=== PATIENT | male | born 1980 | race Two or more races ===

== ENCOUNTER 2017-11-18 11:49 | Emergency (ER) | payer OTHER ==
[2017-11-18 12:06] VITALS: BP 134/76; PULSE 84; TEMP 98.2; BMI 31.2
[2017-11-18] MEDS ORDERED: ASPIRIN 325 MG TABLET PO ONE (12:18)
--- NOTE | 2017-11-18 12:19 | PDOC ---
Attending Attestation - HPI HPI: 11/18/17 13:55 The patient is a 37 year old male, with no significant PMH who presents to the emergency department with intermittent left sided chest pain for one month. The patient reports the left sided chest pain is exacerbated when he moves his left arm and alleviated with Motrin. The patient reports he previously saw his PMD who performed a cardiac work up (without stress test) with normal results and determined the chest pain was musculature. The patient states he decided to come to the ED today because he is continuing to have the chest pain. 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 He denies any recent swelling or calf tenderness. He denies any recent surgeries. He denies any recent travel. He denies any family history of cardiac disease. The patient denies palpitations, shortness of breath, headache and dizziness. Denies fever, chills, nausea, vomit, diarrhea and constipation. Denies dysuria, frequency, urgency and hematuria. Allergies: NKA Documentation prepared by Mikey Hernandez, acting as biomedical engineering aide for Ming Medrano MD. - Physicial Exam PE: 11/18/17 14:09 Vitals: Triage vital signs reviewed General Appearance: No acute distress, well nourished, well developed Head: Atraumatic Eyes: Pupils equal reactive round, extraocular movement intact Ears: TM's normal bilaterally Nose: Nares patent bilaterally; no nasal congestion Throat: Posterior oropharynx without erythema, mucous membranes moist Neck: Supple; No nuchal rigidity Chest Wall: +Reproducible chest wall pain Cardiac: Regular rate and rhythm, no murmurs, no rubs, no gallops Lungs: Clear to auscultation bilateral, good air movement bilaterally Abdomen: Soft, nondistended, normal bowel sounds, nontender to palpation Genitourinary: Rectal: Exam deferred Extremities: Full range of motion to all extremities, no cyanosis, clubbing, or edema Skin: Warm and dry, no rashes or lesions, no rash, no petechiae Neuro: AOX3; Cranial Nerves 2-12 grossly intact, Strength intact to all extremities, Sensation intact to all extremities, gait normal Psych: Normal mood, normal affect - Medical Decision Making 11/18/17 13:57 The patient is a 37 year old male, with no significant PMH who presents to the emergency department with intermittent left sided chest pain for one month. Plan: Labs, EKG. <Mikey Hernandez - Last Filed: 11/18/17 14:09> - ED Attending Attestation I have performed the following: I have examined & evaluated the patient, The case was reviewed & discussed with the resident, I agree w/resident's findings & plan, Exceptions are as noted - Medical Decision Making Reproducible discomfort heart score 1 troponin negative history and examination most consistent with muscle skeletal chest wall pain Findings, the need for follow-up and strict return instructions discussed with patient. <Ming Medrano - Last Filed: 11/18/17 16:29>
[2017-11-18] MEDS ORDERED: ASPIRIN 325 MG TABLET ONE (12:39)
--- NOTE | 2017-11-18 13:28 | EKG ---
Test Reason : Blood Pressure : / mmHG Vent. Rate : 075 BPM Atrial Rate : 075 BPM P-R Int : 148 ms QRS Dur : 088 ms QT Int : 346 ms P-R-T Axes : 055 024 047 degrees QTc Int : 386 ms NORMAL SINUS RHYTHM NORMAL ECG NO PREVIOUS ECGS AVAILABLE Confirmed by GUSTAVO FLORES MD ([id number]) on 11/18/2017 1:28:31 PM Referred By: Confirmed By:GUSTAVO FLORES MD
--- NOTE | 2017-11-18 13:38 | PDOC ---
History of Present Illness - General Chief Complaint: Chest Pain Stated Complaint: LT SHOULDER PAIN Time Seen by Provider: 11/18/17 12:16 History Source: Patient Exam Limitations: No Limitations - History of Present Illness Initial Comments: 11/18/17 13:33 37M with no pmh presents to the ED for left sided chest, shoulder and bicep pain for the past month, temporarily relieved with motrin. He states that he saw his PCp who did a cardiac work up (no stress test) and dertermined that the pain was muscular in nature. Because the symptoms did not resolve the patient came to the ED for a second opinion. The patient works as a manager statistics and carries plates around which exacerbates the pain at the end of his shift. He denies shortness of breath, diaphoresis and palpitations. Pain is reproducible on palpation. Past History - Past Medical History Allergies/Adverse Reactions: Allergies Allergy/AdvReac Type Severity Reaction Status Date / Time No Known Allergies Allergy Verified 11/18/17 12:02 COPD: No DVT: No Dementia: No - Immunization History Immunization Up to Date: Yes - Suicide/Smoking/Psychosocial Hx Smoking History: Never smoked Have you smoked in the past 12 months: No Information on smoking cessation initiated: No Hx Alcohol Use: No Drug/Substance Use Hx: No Substance Use Type: None Review of Systems - Review of Systems Able to Perform ROS?: Yes Is the patient limited Lao proficient: No Constitutional: No: Symptoms Reported HEENTM: No: Symptoms Reported Respiratory: No: Symptoms reported Cardiac (ROS): No: Symptoms Reported ABD/GI: No: Symptoms Reported : No: Symptoms Reported Musculoskeletal: Yes: See HPI Integumentary: No: Symptoms Reported Neurological: No: Symptoms reported All Other Systems: Reviewed and Negative *Physical Exam - Vital Signs Last Vital Signs Temp Pulse Resp BP Pulse Ox 98.2 F 84 17 134/76 98 11/18/17 12:03 11/18/17 12:03 11/18/17 12:03 11/18/17 12:03 11/18/17 12:03 - Physical Exam General Appearance: Yes: Nourished, Appropriately Dressed. No: Apparent Distress HEENT: positive: EOMI, SAURAV, Normal ENT Inspection Respiratory/Chest: positive: Lungs Clear. negative: Chest Tender, Respiratory Distress Cardiovascular: positive: Regular Rhythm, Regular Rate, S1, S2 Gastrointestinal/Abdominal: positive: Normal Bowel Sounds, Flat, Soft. negative : Tender Musculoskeletal: positive: Other (tenderness on palpation of left shoulder and bicep. ) Extremity: positive: Normal Capillary Refill, Normal Inspection, Normal Range of Motion Neurologic: positive: Fully Oriented, Alert, Normal Mood/Affect, Normal Response ED Treatment Course - ADDITIONAL ORDERS Additional order review: Laboratory Results 11/18/17 13:00 Troponin I < 0.02 - Medications Given in the ED: ED Medications Discontinued Medications Generic Name Dose Route Start Last Admin Trade Name Chelle PRN Reason Stop Dose Admin Aspirin 325 mg 11/18/17 12:18 11/18/17 12:39 Asa - PO 11/18/17 12:19 325 mg ONCE ONE Administration Medical Decision Making - Medical Decision Making 11/18/17 14:40 37M presenting with muscular pain over chest right shoulder and arm over the past month. Differential: TX vs MSK vs angina EKG: normal sinus Negative troponins. Low suspicion for cardiac etiololgy due to length of symptoms, relief with Motrin and reproducibility on palpation. Will discharge patient with follow up *DC/Admit/Observation/Transfer Diagnosis at time of Disposition: Musculoskeletal arm pain - Discharge Dispostion Disposition: HOME Admit: No - Referrals Referrals: Aman Enciso [Primary Care Provider] - - Patient Instructions Printed Discharge Instructions: DI for Atypical Chest Pain Additional Instructions: Follow up with your primary care provider Dr. Enciso . Come back to the Emergency department for any new, worsening or concerning symptom. Print Language: FRENCH - Post Discharge Activity Forms/Work/School Notes: Back to Work, Parent(s) Back to Work Note
== END 2017-11-18 15:00 | disposition home or self-care (01) ==
LOC: JER 11:49
DX: M25.511 Pain in right shoulder (principal)
CPT/HCPCS: 36415; 84484; 93005; 93010; 99282-25

== ENCOUNTER 2018-03-15 22:08 | Emergency (ER) | payer OTHER ==
[2018-03-15 22:13] VITALS: BP 119/76; PULSE 74; TEMP 98.5; BMI 26.9
--- NOTE | 2018-03-16 00:33 | PDOC ---
History of Present Illness - General Chief Complaint: Burn Stated Complaint: PAIN Time Seen by Provider: 03/16/18 00:22 History Source: Patient Exam Limitations: No Limitations - History of Present Illness Initial Comments: 03/16/18 01:47 37-year-old male presents to the ER with his complaining of first and second-degree barrow to the right posterior shoulder. Patient states he is constantly lifting at work causing a shoulder strain when his friend decided to put an extremely hot towel onto his right shoulder 2 days ago. Patient states he noticed redness and blisters almost immediately denies fever, chills, nausea/ vomiting. Patient states he's been applying cool compresses with some relief. Last tetanus within 5 years. Past History - Past Medical History Allergies/Adverse Reactions: Allergies Allergy/AdvReac Type Severity Reaction Status Date / Time No Known Allergies Allergy Verified 03/15/18 22:13 Home Medications: Ambulatory Orders Cephalexin Monohydrate [Keflex -] 500 mg PO BID #14 capsule 03/16/18 Silver Sulfadiazine 1% Top Cr [Silvadene -] 1 applic TP BID #1 jar 03/16/18 COPD: No DVT: No Dementia: No - Immunization History Immunization Up to Date: Yes - Suicide/Smoking/Psychosocial Hx Smoking History: Never smoked Have you smoked in the past 12 months: No Hx Alcohol Use: No Drug/Substance Use Hx: No Substance Use Type: None Review of Systems - Review of Systems Able to Perform ROS?: Yes Comments:: 03/16/18 01:49 CONSTITUTIONAL: Absent: fever, chills, diaphoresis, generalized weakness, malaise, loss of appetite HEENT: Absent: rhinorrhea, nasal congestion, throat pain, throat swelling, difficulty swallowing, mouth swelling, ear pain, eye pain, visual Changes CARDIOVASCULAR: Absent: chest pain, loss of consciousness, palpitations, irregular heart rate, peripheral edema RESPIRATORY: Absent: cough, shortness of breath, dyspnea with exertion, orthopnea, wheezing, stridor, hemoptysis GASTROINTESTINAL: Absent: abdominal pain, abdominal distension, nausea, vomiting, diarrhea, constipation, melena, hematochezia GENITOURINARY: Absent: dysuria, frequency, urgency, hesitancy, hematuria, flank pain, genital pain MUSCULOSKELETAL: Absent: myalgia, arthralgia, joint swelling SKIN: Absent: rash, itching, pallor Right posterior shoulder: Pain but denies numbness or tingling sensation Is the patient limited Greek proficient: No *Physical Exam - Vital Signs Last Vital Signs Temp Pulse Resp BP Pulse Ox 98.5 F 74 18 119/76 99 03/15/18 22:11 03/15/18 22:11 03/15/18 22:11 03/15/18 22:11 03/15/18 22:11 - Physical Exam Comments: 03/16/18 01:50 GENERAL: Well developed, well nourished. Awake and alert. No acute distress. HEENT: Normocephalic, atraumatic. PERRLA, EOMI. No conjunctival pallor. Sclera are non- icteric. Moist mucous membranes. Oropharynx is clear. NECK: Supple. Full ROM. No JVD. Carotid pulses 2+ and symmetric, without bruits. No thyromegaly. No lymphadenopathy. CARDIOVASCULAR: Regular rate and rhythm. No murmurs, rubs, or gallops. Distal pulses are 2+ and symmetric. PULMONARY: No evidence of respiratory distress. Lungs clear to auscultation bilaterally. No wheezing, rales or rhonchi. ABDOMINAL: Soft. Non-tender. Non-distended. No rebound or guarding. No organomegaly. Normoactive bowel sounds. MUSCULOSKELETAL Normal range of motion at all joints. No bony deformities or tenderness. No CVA tenderness. EXTREMITIES: No cyanosis. No clubbing. No edema. No calf tenderness. SKIN: Warm and dry. Normal capillary refill. No rashes. No jaundice. right shoulder: F.R>O.M., Right posterior shoulder: 10 x 10 cm first and second degree barrow without lymphangitis *DC/Admit/Observation/Transfer Diagnosis at time of Disposition: First degree burn of right shoulder Qualifiers: Encounter type: initial encounter Qualified Code(s): T22.151A - Burn of first degree of right shoulder, initial encounter - Discharge Dispostion Disposition: HOME Condition at time of disposition: Stable Decision to Admit order: No - Prescriptions Prescriptions: Cephalexin Monohydrate [Keflex -] 500 mg PO BID #14 capsule Silver Sulfadiazine 1% Top Cr [Silvadene -] 1 applic TP BID #1 jar - Referrals Referrals: Aman Enciso [Primary Care Provider] - - Patient Instructions Printed Discharge Instructions: How to Take Care of a Burn, DI for Barrow Additional Instructions: Cool compress Tylenol alternate with Motrin for pain Keflex as prescribed Silvadene twice a day Wound check in 2 days REturn to the ER for severe/persistent/worsening symptoms Follow up with your physician Print Language: BAHAMIAN - Post Discharge Activity
[2018-03-16] MEDS ORDERED: BACITRACIN 0.9 GM PACKET ONE (00:38)
--- NOTE | 2018-03-16 00:52 | PDOC ---
*Physical Exam - Vital Signs Last Vital Signs Temp Pulse Resp BP Pulse Ox 98.5 F 74 18 119/76 99 03/15/18 22:11 03/15/18 22:11 03/15/18 22:11 03/15/18 22:11 03/15/18 22:11 Medical Decision Making - Medical Decision Making 03/16/18 00:52 agree with care from RAYA Luque *DC/Admit/Observation/Transfer Diagnosis at time of Disposition: First degree burn of right shoulder Qualifiers: Encounter type: initial encounter Qualified Code(s): T22.151A - Burn of first degree of right shoulder, initial encounter - Discharge Dispostion Disposition: HOME Condition at time of disposition: Stable - Prescriptions Prescriptions: Cephalexin Monohydrate [Keflex -] 500 mg PO BID #14 capsule Silver Sulfadiazine 1% Top Cr [Silvadene -] 1 applic TP BID #1 jar - Referrals Referrals: Aman Enciso [Primary Care Provider] - - Patient Instructions Printed Discharge Instructions: How to Take Care of a Burn, DI for [place] Additional Instructions: Cool compress Tylenol alternate with Motrin for pain Keflex as prescribed Silvadene twice a day Wound check in 2 days REturn to the ER for severe/persistent/worsening symptoms Follow up with your physician Print Language: BANGLADESHI - Post Discharge Activity
== END 2018-03-16 02:26 | disposition home or self-care (01) ==
LOC: JERFT 22:08 → JER 22:08
DX: T22.151A Burn of first degree of right shoulder, initial encounter (principal); X19.XXXA Contact with other heat and hot substances, initial encounter; Y93.9 Activity, unspecified; Y92.9 Unspecified place or not applicable
CPT/HCPCS: 99281-25

== ENCOUNTER 2019-05-24 11:20 | Emergency (ER) | payer OTHER ==
[2019-05-24 11:26] VITALS: TEMP 98.4; BMI 26.6
--- NOTE | 2019-05-24 12:54 | EKG ---
Test Reason : Blood Pressure : / mmHG Vent. Rate : 064 BPM Atrial Rate : 064 BPM P-R Int : 160 ms QRS Dur : 088 ms QT Int : 354 ms P-R-T Axes : 005 014 021 degrees QTc Int : 365 ms NORMAL SINUS RHYTHM NORMAL ECG WHEN COMPARED WITH ECG OF 18-NOV-2017 12:11, NONSPECIFIC T WAVE ABNORMALITY NO LONGER EVIDENT IN ANTERIOR LEADS Confirmed by ABDIRAHMAN IRIZARRY MD ([id number]) on 05/24/2019 12:53:47 PM Referred By: Confirmed By:ABDIRAHMAN IRIZARRY MD
--- NOTE | 2019-05-24 13:13 | PDOC ---
History of Present Illness - General Chief Complaint: Chest Pain Stated Complaint: CHEST PAIN Time Seen by Provider: 05/24/19 11:56 Past History - Past Medical History Allergies/Adverse Reactions: Allergies Allergy/AdvReac Type Severity Reaction Status Date / Time No Known Allergies Allergy Verified 05/24/19 11:26 Home Medications: Ambulatory Orders Ibuprofen [Motrin -] 600 mg PO TID #21 tablet 05/24/19 COPD: No DVT: No Dementia: No - Immunization History Immunization Up to Date: Yes - Psycho Social/Smoking Cessation Hx Smoking History: Never smoked Have you smoked in the past 12 months: No Hx Alcohol Use: No Drug/Substance Use Hx: No Substance Use Type: None *Physical Exam - Vital Signs Last Vital Signs Temp Pulse Resp BP Pulse Ox 98.4 F 62 16 112/80 96 05/24/19 11:23 05/24/19 11:23 05/24/19 11:23 05/24/19 11:23 05/24/19 11:23 Medical Decision Making - Medical Decision Making 05/24/19 13:05 HPI: 38yo M no PMH presents from home with L-sided anterior chest pain x3-4 days and L-sided pain over trapezius area x1 day, both intermittent, sharp, nonexertional , reproducible with L arm movements and deep breaths and palpation, not worse with lying down, improved with tylenolx2 at 0930 this AM but still mildly present. 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 States exactly same pain as 2 years ago which was muscular. Denies fever, chills, fatigue, headache, dizziness, numbness/tingling , weakness, vision changes, shortness of breath, cough, palpitations, leg swelling, calf tenderness, abdominal pain, blood in stool, diarrhea, constipation, nausea, vomiting, dysuria, hematuria, confusion, hormone use, recent travel, recent surgery, recent illness, sick contacts, hx DVT/PE, FHx CAD , malignancy, smoking. ROS: Constitutional: Negative for chills, fever, fatigue, diaphoresis. HENT: Negative for sore throat, rhinorrhea, congestion. Eyes: Negative for visual disturbance. Respiratory: Negative for shortness of breath, cough, and wheezing. Cardiovascular: Positive for chest pain. Negative for palpitations, and leg swelling. Gastrointestinal: Negative for abdominal pain, blood in stool, constipation, diarrhea, nausea, and vomiting. Genitourinary: Negative for dysuria, flank pain, and hematuria. Musculoskeletal: Positive for L-sided upper back pain. Negative for myalgias and neck pain. Skin: Negative for rash. Neurological: Negative for light-headedness, dizziness, vertigo, syncope, weakness, numbness and headaches. Psychiatric/Behavioral: Negative for behavioral problems and confusion. PE: Gen: Alert, NAD, comfortable-appearing. HEENT: PERRL, EOMI, MMM, NCAT. No conjunctival pallor. Sclera are non-icteric. CV: TTP L upper chest. Regular rate and rhythm. No murmurs, rubs, or gallops. PULM: No resp distress. CTAB, no wheezes, rales, or rhonchi. ABD: soft, NT/ND, no rebound tenderness or guarding, no CVA tenderness. BACK: TTP L trapezius. No TTP of c/t/l-spine. No step-offs or deformities. MSK: No bony deformities. 2+ pulses in all extremities. NEURO: AAOx3. PERRL. No gross CN deficits. Strength and sensation grossly intact throughout. EXTREMITIES: No cyanosis. No clubbing. No edema. No calf tenderness. PSYCH: Normal mood and thought pattern. SKIN: Warm and dry. Normal capillary refill. No rashes. No jaundice. MDM: 38yo M no PMH presents from home with L-sided anterior chest pain x3-4 days and L-sided pain over trapezius area x1 day, both intermittent, sharp, nonexertional , reproducible with L arm movements and deep breaths and palpation, improved with tylenol, hx repetitive heavy lifting, similar to same pain due to muscles 2 years ago. No CAD or PE RFs. Hemodynamically stable, afebrile. Highly reproducible chest and back pain s/p repetitive heavy lifting consistent with MSK pathology - toradol and reassess. Very low concern for ACS/PA due to lack of exertional nature, intermittent nature only with L arm movement or deep breaths or palpation, lack of association with nausea/numbness/diaphoresis/SOB, and lack of RFs; pre-trop HEART score 0 - r/o ACS/PA with EKG. Low concern for pulmonary etiology due to lack of cough or SOB and lungs CTAB, but r/o PNA, COPD exacerbation, and PTX with CXR. Low concern for rib fx due to lack of trauma, but due to reproducibility with palpation, r/o with CXR. Very low concern for PE due to lack of SOB, tachycardia, or RFs; Wells 0, Perc negative - no further testing indicated. Lack of tearing nature of chest pain, lack of hemodynamic instability, and pulses equal bilaterally, make dissection of very low concern - no further testing indicated. -EKG reviewed: NSR, 64bpm, normal axis normal intervals, QTc 365ms, no signs of ischemia, no significant changes compared to 11/18/17 -CXR reviewed: no acute pathology -Toradol -Dispo: d/c home pending reassessment 05/24/19 14:21 Pt feeling better s/p toradol. Will dc home with PCP f/u. Return precautions given. Pt understands all dc instructions and all questions were answered. Discharge - Discharge Information Problems reviewed: Yes Clinical Impression/Diagnosis: Atypical chest pain Condition: Improved Disposition: HOME - Admission No - Additional Discharge Information Prescriptions: Ibuprofen [Motrin -] 600 mg PO TID #21 tablet - Follow up/Referral - Patient Discharge Instructions Patient Printed Discharge Instructions: DI for Atypical Chest Pain, DI for Musculoskeletal Pain Additional Instructions: You have been seen in the Emergency Department for your chest and pain. Your EKG , chest X-ray, and exam show no signs concerning for an emergent condition such as a heart attack at this time. Your pain is most likely muscular. Follow-up with your primary care doctor within 1 week. If you experience pain, you can take Tylenol or Ibuprofen as directed on the medication bottle, but do not exceed 3g of Ibuprofen or 4g of Tylenol a day. We have sent a prescription for Motrin (ibuprofen) to your pharmacy. It's also important to rest and protect the injured or sore area. Stop, change, or take a break from any activity that may be causing your pain or soreness. Cold or ice will reduce pain and swelling. Apply an ice or cold pack for 10 to 20 minutes, 3 or more times a day. After 48 to 72 hours, if swelling is gone, apply heat to the area that hurts. Do not apply ice or heat directly to the skin. Place a towel over the cold or heat pack before applying it to the skin. Return to the ED immediately if you experience chest pain, difficulty breathing , dizziness, vomiting, or any other new or worsening symptom. - Post Discharge Activity
[2019-05-24] MEDS ORDERED: KETOROLAC TROMETHAMINE 30 MG/1 ML VIAL IM ONE (13:18)
[2019-05-24] MEDS ORDERED: KETOROLAC TROMETHAMINE 30 MG/1 ML VIAL ONE (13:33)
--- NOTE | 2019-05-24 14:23 | PDOC ---
Attending Attestation - Resident Resident Name: Emily Mariano - ED Attending Attestation I have performed the following: I have examined & evaluated the patient, The case was reviewed & discussed with the resident, I agree w/resident's findings & plan, Exceptions are as noted - HPI HPI: 05/24/19 14:21 38-year-old male with no significant past medical history presents with atraumatic left-sided chest and scapular pain that is exacerbated by movement for the past 4 days. Patient denies fever/chills/shortness of breath. - Physicial Exam PE: 05/24/19 14:21 Patient is awake and alert, well-nourished, in no distress, vital signs are noted. Normocephalic, atraumatic PERRLA, EOMI CTA RRR Reproducible left anterior chest wall tenderness to palpation second and third intercostal spaces along the midclavicular line; - Medical Decision Making 05/24/19 14:22 Patient is a well-appearing 38-year-old male who presents with signs and symptoms of acute musculoskeletal strain. EKG shows no evidence of acute ischemia or dysrhythmia. Chest x-ray reveals no evidence of cardiomegaly/ pneumothorax/infiltrate or effusion. Patient is negative for PE by the PERC rule. ACS is highly unlikely given absence of risk factors and atypical nature of the presentation. Patient received IM Toradol with significant improvement. Will discharge.
[2019-05-24 14:50] VITALS: BP 109/80; PULSE 84
== END 2019-05-24 14:50 | disposition home or self-care (01) ==
LOC: JER 11:20
PROC: 3E0233Z Introduction of Anti-inflammatory into Muscle, Percutaneous Approach (ICD-10-PCS; principal; 2019-05-24)
DX: R07.89 Other chest pain (principal)
CPT/HCPCS: 71046-TC-FY; 93005; 93010; 96372; 99283-25

== ENCOUNTER 2020-02-19 11:51 | Emergency (ER) | payer OTHER ==
[2020-02-19 11:56] VITALS: BP 124/85; PULSE 101; TEMP 97.8; BMI 21.6
--- NOTE | 2020-02-19 11:56 | PDOC ---
Rapid Medical Evaluation Chief Complaint: Allergic Reaction Time Seen by Provider: 02/19/20 11:53 Medical Evaluation: Allergies Allergy/AdvReac Type Severity Reaction Status Date / Time No Known Allergies Allergy Verified 02/19/20 11:53 02/19/20 11:54 I have performed a brief in-person evaluation of this patient. The patient presents with a chief complaint of: poison iv to b/l hands and forearm x 1 week. applied OTC poison prabhakar cream with minimal improvement . Denies SOB, chocking sensation, lip or tongue swelling Pertinent physical exam findings:diffused urticarial rash with excoriations from scratching to b/l distal UE. no open wounds I have ordered the following: deferred The patient will proceed to the ED for further evaluation. Discharge Disposition - Diagnosis Allergic dermatitis due to poison prabhakar - Discharge Dispostion Condition at time of disposition: Stable - Referrals - Patient Instructions - Post Discharge Activity
--- NOTE | 2020-02-19 12:10 | PDOC ---
History of Present Illness - General Chief Complaint: Allergic Reaction Stated Complaint: SKIN RASH Time Seen by Provider: 02/19/20 11:53 - History of Present Illness Initial Comments: 02/19/20 12:05 39-year-old male without comorbidities presents for evaluation of rash. Patient was doing gardening work at his home and developed a rash on his arm back and small area of his chest no systemic symptoms. He applied topical over-the- counter cortisone without much relief. Past History - Medical History Allergies/Adverse Reactions: Allergies Allergy/AdvReac Type Severity Reaction Status Date / Time No Known Allergies Allergy Verified 02/19/20 11:53 Home Medications: Ambulatory Orders Ibuprofen [Motrin -] 600 mg PO TID #21 tablet 05/24/19 Clobetasol Propionate [Temovate] 30 gm TP BID #1 oint...g. 02/19/20 Methylprednisolone [Medrol Dose Josh] 4 mg PO ASDIR #21 tablet 02/19/20 COPD: No DVT: No Dementia: No - Immunization History Immunization Up to Date: Yes - Psycho-Social/Smoking History Smoking History: Never smoked Have you smoked in the past 12 months: No Information on smoking cessation initiated: No - Substance Abuse Hx (Audit-C & DAST Scrn) How often the patient has a drink containing alcohol: Never Score: In Men: 4 or > Positive; In Women: 3 or > Positive: 0 Screen Result (Pos requires Nsg. Audit-10AR): Negative In the last yr the pt used illegal drug/Rx for NonMed reason: No Score: Yes response is considered Positive: 0 Screen Result (Positive result requires Nsg. DAST-10): Negative Review of Systems - Review of Systems Constitutional: No: Fever Integumentary: Yes: Pruritus, Rash *Physical Exam - Vital Signs Last Vital Signs Temp Pulse Resp BP Pulse Ox 97.8 F 101 H 17 124/85 97 02/19/20 11:53 02/19/20 11:53 02/19/20 11:53 02/19/20 11:53 02/19/20 11:53 - Physical Exam 02/19/20 12:06 GENERAL: The patient is awake, alert, and fully oriented, in no acute distress. HEAD: Normal with no signs of trauma. EYES: sclera anicteric, conjunctiva clear. ENT: Ears normal tympanic membranes normal oropharynx clear uvula midline NECK: Normal range of motion LUNGS: Breath sounds equal, clear to auscultation bilaterally. No wheezes, and no crackles. HEART: S1 and S2 without murmur, rub or gallop. ABDOMEN: Soft, nontender, normoactive bowel sounds. No guarding, no rebound. No masses. EXTREMITIES: Normal range of motion, no edema. No clubbing or cyanosis. No cords, erythema, or tenderness. NEUROLOGICAL: Cranial nerves II through XII grossly intact. PSYCH: Normal mood, normal affect. SKIN: Warm, Dry, normal turgor,There is a diffuse rash on the left and right upper extremities with flaking small patch on his back and a small area on his chest mild surrounding erythema without indication of secondary infection no induration fluctuance or sensitivity. Medical Decision Making - Medical Decision Making 02/19/20 12:06 Medrol Dosepak and topical cortisone to follow-up with dermatology I have reviewed the pathophysiology with the patient. They are in agreement with the treatment plan all questions were answered to their satisfaction. Understanding for follow-up without fail was also conveyed to the patient. Again they are in agreement. Discharge - Discharge Information Problems reviewed: Yes Clinical Impression/Diagnosis: Allergic dermatitis due to poison [place] Condition: Stable Disposition: HOME - Admission No - Additional Discharge Information Prescriptions: Methylprednisolone [Medrol Dose Josh] 4 mg PO ASDIR #21 tablet Clobetasol Propionate [Temovate] 30 gm TP BID #1 oint...g. - Follow up/Referral Referrals: Amy Kennedy MD [Staff Physician] - - Patient Discharge Instructions Patient Printed Discharge Instructions: Contact Dermatitis, Poison [place], Poison [place], Poison [place], DI for Contact Dermatitis Additional Instructions: Please take the Medrol Dosepak and use a steroid cream as directed and return to the emergency room for worsening symptoms. Without fail follow-up with dermatology in 1 to 2 days for further evaluation and treatment options. - Post Discharge Activity
== END 2020-02-19 15:13 | disposition home or self-care (01) ==
LOC: JERFT 11:51
DX: L23.7 Allergic contact dermatitis due to plants, except food (principal)
CPT/HCPCS: 99282-25

== ENCOUNTER 2022-01-06 13:09 | Emergency (ER) | payer OTHER ==
[2022-01-06 13:32] VITALS: BP 112/75; PULSE 98; TEMP 98; BMI 24.6
[2022-01-06 16:05] LABS: BASO % 0.4 % (0-2.0); EOS % 1.3 % (0-4.5); HEMATOCRIT 38.9 % (35.4-49); HEMOGLOBIN 13.8 GM/dL (11.7-16.9); LYMPH % 29.8 % (8-40); MCH 33.6 pg (25.7-33.7); MCHC 35.4 g/dl (32.0-35.9); MEAN CELL VOLUME 94.8 fl (80-96); MEAN PLT VOLUME 8.5 fl (7.5-11.1); MONO % 6.1 % (3.8-10.2); NEUT % 62.4 % (42.8-82.8); PLATELET COUNT 259 10^3/uL (134-434); WHITE BLOOD COUNT 8.3 K/mm3 (4.0-10.0)
[2022-01-06 16:09] LABS: URINE APPEARANCE CLEAR; URINE BILIRUBIN NEGATIVE (NEGATIVE); URINE COLOR YELLOW; URINE GLUCOSE (UA) NEGATIVE (NEGATIVE); URINE KETONE TRACE (NEGATIVE); URINE LEUK ESTERASE NEGATIVE (NEGATIVE); URINE NITRITE NEGATIVE (NEGATIVE); URINE PROTEIN TRACE (NEGATIVE); URINE UROBILINOGEN 0.2 mg/dL (0.2-1.0)
[2022-01-06 16:21] LABS: ALBUMIN 4.2 g/dl (3.4-5.0); CALCIUM 9.1 mg/dL (8.5-10.1)
[2022-01-06 16:22] LABS: BLOOD UREA NITROGEN 14.1 mg/dL (7-18)
[2022-01-06 16:25] LABS: CREATININE 0.7 mg/dL (0.55-1.3)
[2022-01-06 16:26] LABS: BILIRUBIN,TOTAL 0.4 mg/dL (0.2-1); TOT PROT 7.8 g/dl (6.4-8.2)
[2022-01-06] MEDS ORDERED: KETOROLAC TROMETHAMINE 30 MG/1 ML VIAL IM ONE (16:27)
[2022-01-06] MEDS ORDERED: LIDOCAINE 5% TOPICAL PATCH TP ONE (16:27)
[2022-01-06] MEDS ORDERED: CYCLOBENZAPRINE HCL 10 MG TABLET (FP) PO ONE (16:27)
[2022-01-06] MEDS ORDERED: LIDOCAINE 5% TOPICAL PATCH ONE (16:35)
[2022-01-06] MEDS ORDERED: KETOROLAC TROMETHAMINE 30 MG/1 ML VIAL ONE (16:35)
[2022-01-06] MEDS ORDERED: CYCLOBENZAPRINE HCL 10 MG TABLET (FP) ONE (16:35)
[2022-01-06] MEDS ORDERED: LIDOCAINE PATCH REMOVAL MC SCH (22:00)
== END 2022-01-06 17:30 | disposition home or self-care (01) ==
LOC: JERFT 13:09
PROC: 3E0233Z Introduction of Anti-inflammatory into Muscle, Percutaneous Approach (ICD-10-PCS; principal; 2022-01-06)
DX: R10.9 Unspecified abdominal pain (principal)
CPT/HCPCS: 36415; 80053; 81003; 85025; 87086; 99284-25

== ENCOUNTER 2024-03-06 15:05 | Emergency (ER) | payer OTHER ==
[2024-03-06 15:09] VITALS: BP 119/73; PULSE 60; RESP 18; TEMP 98.4; BMI 26.6
== END 2024-03-06 16:15 | disposition home or self-care (01) ==
LOC: JERFT 15:05
DX: H11.32 Conjunctival hemorrhage, left eye (principal)
CPT/HCPCS: 99283-25